=== PATIENT | female | born 1990 | race Caucasian/White ===

== ENCOUNTER 2020-07-14 19:54 | Emergency (ER) | payer SELFPAY ==
[2020-07-14] MEDS ORDERED: RINGERS SOLUTION,LACTATED 1,000 ML IV ONE (21:30)
[2020-07-14] MEDS ORDERED: ONDANSETRON HCL INJ/PF 4 MG/2 ML SDV IV ONE (21:31)
--- NOTE | 2020-07-14 21:32 | ER Document Report ---
ED Medical Screen (RME) - General Chief Complaint: Medical Clearance Stated Complaint: NEEDS MEDICAL CLEARANCE FOR [place] Time Seen by Provider: 07/14/20 21:29 Mode of Arrival: Ambulatory Notes: HPI; 30-year-old female presents to the emergency room for clearance for alcohol withdrawal at [place]. Patient states she went over to [place] and that her alcohol was too high for them to keep her. Also states she has a history of epilepsy and they want her medically cleared before they will accept her. States she been drinking heavily for the past 5 years started out with hard liquor then switched to beer and is now drinking wine. States she had 3 bottles of wine today last drink at 2 PM. Complains of nausea but no vomiting. Denies any abdominal pain, no shortness of breath, no difficulty breathing. PE: Patient is alert and oriented x3. Shaky in triage. Blood pressure is elevated. Lungs: Clear to auscultation without rales, rhonchi, wheezes. Heart: Tachycardic without murmurs, rubs, gallops. Charge nurse aware patient will be taken to her room as soon as available. I have greeted and performed a rapid initial assessment of this patient. A comprehensive ED assessment and evaluation of the patient, analysis of test results and completion of the medical decision making process will be conducted by additional ED providers. I have specifically instructed the patient or family members with the patient to immediately return to any nursing staff should anything change in the patient's condition or with their chief complaint. TRAVEL OUTSIDE OF THE [place] IN LAST 30 DAYS: Yes Physical Exam - Vital signs Vitals: Temp Pulse Resp BP Pulse Ox 98.4 F 145 H 16 152/120 H 95 07/14/20 20:00 07/14/20 20:00 07/14/20 20:00 07/14/20 20:00 07/14/20 20:00 Course - Vital Signs Vital signs: Temp Pulse Resp BP Pulse Ox 98.4 F 145 H 16 152/120 H 95 07/14/20 20:00 07/14/20 20:00 07/14/20 20:00 07/14/20 20:00 07/14/20 20:00
[2020-07-14 22:32] LABS: APPEARANCE,URINE SLIGHTLY-CLOUDY; BILIRUBIN,URINE NEGATIVE (NEGATIVE); COLOR,URINE YELLOW; GLUCOSE, URINE 50 mg/dL (NEGATIVE); KETONES,URINE NEGATIVE (NEGATIVE); LEUKOCYTE ESTERASE,URINE TRACE (NEGATIVE); NITRITE,URINE NEGATIVE (NEGATIVE); PROTEIN,URINE NEGATIVE (NEGATIVE); URINE SPECIFIC GRAVITY 1.008; UROBILINOGEN,URINE NEGATIVE mg/dL (<2.0)
[2020-07-14 22:43] LABS: URINE AMPHETAMINES SCREEN NEGATIVE; URINE BARBITURATES SCREEN NEGATIVE; URINE BENZODIAZEPINES SCREEN NEGATIVE; URINE COCAINE SCREEN NEGATIVE; URINE MARIJUANA (THC) SCREEN NEGATIVE; URINE METHADONE SCREEN NEGATIVE; URINE PHENCYCLIDINE SCREEN NEGATIVE
[2020-07-14 22:51] LABS: ABSOLUTE BASOPHILS # (AUTO) 0.1 10^3/uL (0.0-0.2); ABSOLUTE EOSINOPHILS # (AUTO) 0.1 10^3/uL (0.0-0.6); ABSOLUTE LYMPHOCYTES (AUTO) 2.7 10^3/uL (0.5-4.7); ABSOLUTE MONOCYTES (AUTO) 0.9 10^3/uL (0.1-1.4); ABSOLUTE NEUT (AUTO) 3.7 10^3/uL (1.7-8.2); BASOPHILS % (AUTO) 0.8 % (0-2); EOSINOPHILS % (AUTO) 0.7 % (0-6); HEMATOCRIT 35.4 % (36.0-47.0); HEMOGLOBIN 11.1 g/dL (12.0-15.5); LYMPHOCYTES % (AUTO) 36.5 % (13-45); MEAN CORPUSCULAR HEMOGLOBIN 23.3 pg (27.0-33.4); MEAN CORPUSCULAR HGB CONC 31.3 g/dL (32.0-36.0); MEAN CORPUSCULAR VOLUME 74 fl (80-97); PLATELET COUNT 249 10^3/uL (150-450); RED BLOOD COUNT 4.76 10^6/uL (3.72-5.28); RED CELL DISTRIBUTION WIDTH 20.8 % (11.5-14.0); TOTAL CELLS COUNTED % (AUTO) 100 %; WHITE BLOOD COUNT 7.5 10^3/uL (4.0-10.5)
[2020-07-14 23:18] LABS: ALBUMIN 4.4 g/dL (3.5-5.0); ALCOHOL 159 mg/dL (NONE DETECTED); ALKALINE PHOSPHATASE 95 U/L (38-126); ANION GAP 12 (5-19); ASPARTATE AMINO TRANSFERASE 43 U/L (14-36); BILIRUBIN,DIRECT 0.1 mg/dL (0.0-0.4); BILIRUBIN,TOTAL 0.4 mg/dL (0.2-1.3); BLOOD UREA NITROGEN 3 mg/dL (7-20); CALCIUM 9.4 mg/dL (8.4-10.2); CARBON DIOXIDE 23 mmol/L (22-30); CHLORIDE 104 mmol/L (98-107); GLUCOSE 98 mg/dL (75-110); POTASSIUM 3.8 mmol/L (3.6-5.0); TOTAL PROTEIN 8.2 g/dL (6.3-8.2)
[2020-07-14 23:25] LABS: ACETAMINOPHEN < 10 ug/mL (10-30); SALICYLATE < 1.0 mg/dL (2.0-20.0)
[2020-07-15] MEDS ORDERED: ONDANSETRON HCL INJ/PF 4 MG/2 ML SDV IV ONE (00:30)
--- NOTE | 2020-07-15 00:37 | ER Document Report ---
ED General - General Chief Complaint: Medical Clearance Stated Complaint: NEEDS MEDICAL CLEARANCE FOR [place] Time Seen by Provider: 07/14/20 21:29 Mode of Arrival: Ambulatory TRAVEL OUTSIDE OF THE [place] IN LAST 30 DAYS: Yes - HPI Notes: Patient is a 30-year-old female with a past medical history of alcohol abuse and epilepsy who presents for medical clearance. Patient states that she started drinking again 3 months ago. She states she has been drinking heavily for the past 3 days. Today, she has drank 3 bottles of wine since 2 PM. She went to [place] [facility] for detox. When she arrived there, her alcohol level was 0.220 so they recommended she go to the ER for clearance before they can accept her. She states that they do have a bed for her available. Patient was tachycardic when she came in. She states she has been vomiting which normally happens to her after she stops drinking alcohol abruptly. She denies any chest pain or shortness of breath. No abdominal pain. No urinary symptoms. She states she feels slightly lightheaded and thinks that is from dehydration. She denies any suicidal or homicidal thoughts. - Related Data Allergies/Adverse Reactions: Sulfa (Sulfonamide Antibiotics) Allergy (Verified 07/14/20 23:13) Past Medical History - General Information source: Patient - Social History Smoking Status: Current Some Day Smoker Family History: Reviewed & Not Pertinent Review of Systems - Review of Systems Notes: CONSTITUTIONAL: No fever, fatigue or weight loss. SKIN: No rash. HENT: No congestion, ear pain, or sore throat. EYES: No recent vision problems or eye pain. CARDIOVASCULAR: No chest pain or edema. RESPIRATORY: No cough, shortness of breath, congestion, or wheezing. GASTROINTESTINAL: No abdominal pain, bloody stools or diarrhea. Positive for vomiting. GENITOURINARY: No dysuria. No hematuria MUSCULOSKELETAL: No joint pain or swelling. NEUROLOGIC: No seizures. No headache, focal weakness or sensory changes. HEMATOLOGIC: No unusual bruising or bleeding. PSYCHIATRIC: No depression or anxiety. Physical Exam - Vital signs Vitals: Temp Pulse Resp BP Pulse Ox 98.4 F 145 H 16 152/120 H 95 07/14/20 20:00 07/14/20 20:00 07/14/20 20:00 07/14/20 20:00 07/14/20 20:00 - General General appearance: Appears well In distress: None Notes: VITAL SIGNS: Mild tachycardia,no acute distress, non-toxic appearance. HEAD: Normal with no signs of head trauma. EYES: Conjunctiva normal, no discharge. EARS: Hearing grossly intact. NECK: Normal range of motion, no tenderness, supple, no lymphadenopathy, No adenopathy, no JVD. CHEST: Clear breath sounds bilaterally. No wheezes, rales, or rhonchi. CARDIAC: Regular rate and rhythm. Mild tachycardia. VASCULAR: No Edema. ABDOMEN: Normal and soft with no tenderness, no masses or pulsatile masses. GENITOURINARY: Normal, No tenderness MUSCULOSKELETAL: Good range of motion of all major joints. Extremities without clubbing, cyanosis or edema. NEUROLOGICAL: Alert and oriented x 3. No focal sensory or strength deficits. Speech normal. Follows commands appropriately. PSYCHIATRIC: Normal Affect, judgement and mood. SKIN: Normal appearance with no rashes or lesions. Course - Re-evaluation Re-evalutation: 07/15/20 00:36 Patient's alcohol level has improved. She is alert and oriented and in no acute distress. We will hydrate her. Likely, she will be discharged to [place] [facility]. 07/15/20 05:08 Patient's work-up is unremarkable. She is medically cleared. Patient is very agreeable to this. I will have nurse call [facility] to have her take in there. - Vital Signs Vital signs: Temp Pulse Resp BP Pulse Ox 98.4 F 145 H 16 152/120 H 95 07/14/20 20:00 07/14/20 20:00 07/14/20 20:00 07/14/20 20:00 07/14/20 20:00 - Laboratory Results Result Diagrams: 07/14/20 22:29 07/14/20 22:29 Laboratory Results Interpreted: 07/14/20 07/14/20 07/14/20 21:37 22:29 22:29 Hgb 11.1 L Hct 35.4 L MCV 74 L MCH 23.3 L MCHC 31.3 L RDW 20.8 H BUN 3 L AST 43 H Urine Glucose (UA) 50 H Ur Leukocyte Esterase TRACE H Salicylates < 1.0 L Acetaminophen < 10 L Critical Laboratory Results Reviewed: No Critical Results - Radiology Results Critical Radiology Results Reviewed: No Critical Results - EKG Interpretation by Md EKG shows normal: Sinus rhythm Rate: Normal Rhythm: NSR When compared to previous EKG there are: Previous EKG unavailable Discharge - Discharge Clinical Impression: Nausea, Alcohol abuse Condition: Stable Disposition: HOME, SELF-CARE Instructions: Nausea or Vomiting, Nonspecific ([facility]) Additional Instructions: Your work-up is reassuring. Please make sure you are staying hydrated. Please go to [place] [facility] after discharge from the emergency department. Return to the ER for any change of symptoms.
[2020-07-15 09:42] VITALS: BP 119/61
--- NOTE | 2020-07-15 10:11 | EKG REPORT ---
SEVERITY:- NORMAL ECG - SINUS RHYTHM : Confirmed by: Severiano Woodard MD 15-Jul-2020 10:10:20
== END 2020-07-15 09:27 | disposition home or self-care (01) ==
LOC: ER 19:54
DX: F10.10 Alcohol abuse, uncomplicated (principal); R11.2 Nausea with vomiting, unspecified; R00.0 Tachycardia, unspecified; R42 Dizziness and giddiness; F17.200 Nicotine dependence, unspecified, uncomplicated; Z88.2 Allergy status to sulfonamides
CPT/HCPCS: 93005; 99284; 96361; 96374; 36415; 87086; 80307 ×4; 83690; 83735; 84703; 85025; 87088; 80053; 81001; 87186; 93010; J2405; J7120